=== PATIENT | female | born 1985 | race Two or more races ===

== ENCOUNTER 2016-11-04 15:24 | Emergency (ER) | payer MEDICAID ==
[~2016-11-04] VITALS: Ht 165.1 cm; Wt 69.0 kg
[~2016-11-04 15:24] MED LIST: ALBUTEROL; XOPENEX; depakote
[2016-11-04] MEDS ORDERED: BACITRACIN ZINC OINT UDPKT TOP ONE (17:15)
[2016-11-04] MEDS ORDERED: IBUPROFEN 400MG TABLET PO ONE (17:15)
[2016-11-04] MEDS ORDERED: TETANUS, DIPHTHERIA, PERTUSSIS VAC/PF 0.5ML (>7YR OLD) IM ONE (17:15)
[2016-11-04 17:35] VITALS: BP 121/60
== END 2016-11-04 18:11 | disposition home or self-care (01) ==
LOC: ER 15:25
DX: S60.511A Abrasion of right hand, initial encounter (principal); H91.90 Unspecified hearing loss, unspecified ear; F12.10 Cannabis abuse, uncomplicated; Z98.890 Other specified postprocedural states; W45.8XXA Other foreign body or object entering through skin, initial encounter; Y93.89 Activity, other specified; Y92.89 Other specified places as the place of occurrence of the external cause; Y99.8 Other external cause status
CPT/HCPCS: 73130; 90471; 90715; 99284; J7030; Z7610

== ENCOUNTER 2020-03-29 14:14 | Emergency (ER) | payer MEDICAID ==
[~2020-03-29] VITALS: Ht 162.6 cm; Wt 55.0 kg
[2020-03-29 20:36] LABS: CLARITY URINE CLEAR (CLEAR); COLOR URINE YELLOW (YELLOW); KETONES URINE TRACE (NEGATIVE); LEUKOCYTE ESTERASE URINE 1+ (NEGATIVE); NITRITE URINE NEGATIVE (NEGATIVE); OCCULT BLOOD URINE NEGATIVE (NEGATIVE); PROTEIN URINE NEGATIVE (NEGATIVE)
[2020-03-29 20:50] LABS: CHLORIDE 110 mEq/L (98-107)
[2020-03-29 20:51] LABS: BASOPHILS % 0.8 % (0.0-2.0); EOSINOPHILS % 1.2 % (0.0-5.0); HEMATOCRIT. 37.6 % (36.0-48.0); HEMOGLOBIN. 12.4 g/dL (12.0-16.0); MEAN CORPUSCULAR VOLUME 90.9 fL (81.0-99.0); MEAN PLATELET VOLUME 10.9 fl (7.4-10.4); MONOCYTES % 12.3 % (2.0-8.0); NEUTROPHILS % 58.7 % (40.0-76.0); PLATELET 160 x1000/uL (130-400); RED BLOOD CELL COUNT 4.14 mill/uL (4.2-5.4); RED CELL DISTRIBUTION WIDTH 13.8 % (11.6-14.6)
[2020-03-29 20:53] LABS: *BARBITURATES SCREEN URINE NEGATIVE (NEGATIVE); *BENZODIAZEPINES SCREEN URINE NEGATIVE (NEGATIVE); *COCAINE SCREEN URINE NEGATIVE (NEGATIVE); METHADONE URINE SCREEN NEGATIVE (NEGATIVE); OPIATES URINE SCREEN NEGATIVE (NEGATIVE)
[2020-03-29 20:54] LABS: PHENCYCLIDINE URINE SCREEN NEGATIVE (NEGATIVE)
[2020-03-29 20:54] LABS: ETHANOL BLOOD < 10 mg/dL
[2020-03-29 20:56] LABS: *AMPHETAMINES SCREEN URINE PRESUMTIVE POSITIVE (NEGATIVE); CANNABINOID URINE SCREEN PRESUMTIVE POSITIVE (NEGATIVE)
[2020-03-29 21:11] LABS: HCG SCREEN NEGATIVE
[2020-03-29] MEDS ORDERED: NITROFURANTOIN 100MG M/M CAPSULE PO STA (21:44)
[2020-03-30 12:00] VITALS: BP 114/70
== END 2020-03-30 12:52 | disposition home or self-care (01) ==
LOC: ER 14:27
DX: F91.9 Conduct disorder, unspecified (principal); H91.3 Deaf nonspeaking, not elsewhere classified; R62.50 Unspecified lack of expected normal physiological development in childhood; F20.9 Schizophrenia, unspecified; F31.9 Bipolar disorder, unspecified; F19.10 Other psychoactive substance abuse, uncomplicated; Z59.0 Homelessness
CPT/HCPCS: 36415; 80053; 80165; 80305; 80307; 80320; 80329; 81003; 84703; 85025; 99285; G0480

== ENCOUNTER 2020-05-11 01:21 | Emergency (ER) | payer MEDICAID ==
[~2020-05-11] VITALS: Ht 170.2 cm; Wt 68.0 kg
[2020-05-11 01:24] VITALS: BP 127/75
[2020-05-11] MEDS ORDERED: KETOROLAC 60MG/2ML VIAL IM ONE (06:45)
[2020-05-11] MEDS ORDERED: KETOROLAC 60MG/2ML VIAL IM NR (08:00)
== END 2020-05-11 09:20 | disposition home or self-care (01) ==
LOC: ER 01:21
DX: M54.9 Dorsalgia, unspecified (principal); M54.30 Sciatica, unspecified side; F31.9 Bipolar disorder, unspecified; H91.3 Deaf nonspeaking, not elsewhere classified
CPT/HCPCS: 73502; 81025; 93970; 99284; J1885

== ENCOUNTER 2020-06-25 14:23 | Emergency (ER) | payer MEDICAID ==
[~2020-06-25] VITALS: Ht 167.6 cm; Wt 68.0 kg
[2020-06-25] MEDS ORDERED: ONDANSETRON HCL 4MG/2ML INJ IV STA (14:36)
[2020-06-25] MEDS ORDERED: SODIUM CHLORIDE 0.9% 1,000 ML IV ONE (14:45)
[2020-06-25 16:02] LABS: BASOPHILS % 0.4 % (0.0-2.0); EOSINOPHILS % 0.6 % (0.0-5.0); HEMATOCRIT. 40.9 % (36.0-48.0); HEMOGLOBIN. 13.5 g/dL (12.0-16.0); LYMPHOCYTES % 23.4 % (20.0-50.0); MEAN CORPUSCULAR HEMOGLOBIN 30.3 pg (28.0-32.0); MEAN CORPUSCULAR VOLUME 91.9 fL (81.0-99.0); MEAN PLATELET VOLUME 11.1 fl (7.4-10.4); MONOCYTES % 7.3 % (2.0-8.0); NEUTROPHILS % 68.3 % (40.0-76.0); PLATELET 163 x1000/uL (130-400); RED BLOOD CELL COUNT 4.46 mill/uL (4.2-5.4); RED CELL DISTRIBUTION WIDTH 14.4 % (11.6-14.6)
[2020-06-25 16:11] LABS: CHLORIDE 106 mEq/L (98-107)
[2020-06-25 16:13] LABS: PROTHROMBIN TIME 10.1 sec (9.6-11.0)
[2020-06-25 16:17] LABS: HCG SCREEN NEGATIVE
[2020-06-25 19:25] VITALS: BP 110/68
== END 2020-06-25 19:56 | disposition home or self-care (01) ==
LOC: ER 14:23
DX: R10.9 Unspecified abdominal pain (principal); R19.7 Diarrhea, unspecified; J45.909 Unspecified asthma, uncomplicated; I10 Essential (primary) hypertension; E11.9 Type 2 diabetes mellitus without complications; Z98.890 Other specified postprocedural states
CPT/HCPCS: 36415; 74021; 80053; 83690; 84484; 84703; 85025; 85610; 93005; 96361; 96374; 99285; J2405; J7030; Z7610

== ENCOUNTER 2020-11-18 16:54 | Emergency (ER) | payer MEDICAID ==
[~2020-11-18] VITALS: Ht 170.2 cm; Wt 82.0 kg
[2020-11-18 19:25] LABS: CHLORIDE 108 mEq/L (98-107); EOSINOPHILS % 3.4 % (0.0-5.0); HEMATOCRIT. 35.5 % (36.0-48.0); LYMPHOCYTES % 38.6 % (20.0-50.0); MEAN CORPUSCULAR HEMOGLOBIN 29.4 pg (28.0-32.0); MEAN CORPUSCULAR VOLUME 86.5 fL (81.0-99.0); MEAN PLATELET VOLUME 10.5 fl (7.4-10.4); MONOCYTES % 8.2 % (2.0-8.0); NEUTROPHILS % 48.8 % (40.0-76.0); PLATELET 173 x1000/uL (130-400); RED CELL DISTRIBUTION WIDTH 14.7 % (11.6-14.6)
[2020-11-18 19:29] LABS: ETHANOL BLOOD < 10 mg/dL
[2020-11-18 22:45] LABS: CLARITY URINE CLEAR (CLEAR); COLOR URINE YELLOW (YELLOW); KETONES URINE TRACE (NEGATIVE); LEUKOCYTE ESTERASE URINE NEGATIVE (NEGATIVE); NITRITE URINE NEGATIVE (NEGATIVE); OCCULT BLOOD URINE TRACE (NEGATIVE); PROTEIN URINE NEGATIVE (NEGATIVE); SPECIFIC GRAVITY URINE 1.029 (1.005-1.030); UROBILINOGEN URINE 0.2 E.U./dL (0.2-1.0)
[2020-11-18 22:54] LABS: *BARBITURATES SCREEN URINE NEGATIVE (NEGATIVE); *BENZODIAZEPINES SCREEN URINE NEGATIVE (NEGATIVE); *COCAINE SCREEN URINE NEGATIVE (NEGATIVE)
[2020-11-18 22:55] LABS: METHADONE URINE SCREEN NEGATIVE (NEGATIVE); OPIATES URINE SCREEN NEGATIVE (NEGATIVE); PHENCYCLIDINE URINE SCREEN NEGATIVE (NEGATIVE)
[2020-11-18 23:01] LABS: *AMPHETAMINES SCREEN URINE PRESUMTIVE POSITIVE (NEGATIVE)
[2020-11-18 23:02] LABS: CANNABINOID URINE SCREEN PRESUMTIVE POSITIVE (NEGATIVE)
[2020-11-18 23:03] LABS: HCG SCREEN NEGATIVE
[2020-11-19] MEDS ORDERED: RISPERIDONE 0.5MG TABLET PO STA (12:44)
[2020-11-20 11:42] VITALS: BP 138/97
== END 2020-11-20 11:51 | disposition home or self-care (01) ==
LOC: ER 16:54
DX: F23 Brief psychotic disorder (principal); F15.10 Other stimulant abuse, uncomplicated; F31.9 Bipolar disorder, unspecified; E11.9 Type 2 diabetes mellitus without complications; I10 Essential (primary) hypertension; J45.909 Unspecified asthma, uncomplicated; H91.3 Deaf nonspeaking, not elsewhere classified; Z59.0 Homelessness; Z98.890 Other specified postprocedural states; Z75.1 Person awaiting admission to adequate facility elsewhere
CPT/HCPCS: 36415; 80053; 80305; 80307; 80320; 80329; 81003; 84703; 85025; 93005; 99285; G0480

== ENCOUNTER 2021-12-10 08:14 | Emergency (ER) | payer MEDICAID, MEDICARE ==
[~2021-12-10] VITALS: Ht 162.6 cm; Wt 117.0 kg
[2021-12-10 13:07] VITALS: BP 133/90
== END 2021-12-10 13:07 | disposition home or self-care (01) ==
LOC: ER 08:14
DX: M79.89 Other specified soft tissue disorders (principal); S09.8XXA Other specified injuries of head, initial encounter; J45.909 Unspecified asthma, uncomplicated; I10 Essential (primary) hypertension; E11.9 Type 2 diabetes mellitus without complications; H91.3 Deaf nonspeaking, not elsewhere classified; W01.0XXA Fall on same level from slipping, tripping and stumbling without subsequent striking against object, initial encounter; Y92.9 Unspecified place or not applicable; Z86.718 Personal history of other venous thrombosis and embolism
CPT/HCPCS: 73090; 81025; 93971; 99284

== ENCOUNTER 2022-06-30 21:02 | Emergency (ER) | payer MEDICAID ==
[~2022-06-30] VITALS: Ht 165.1 cm; Wt 82.0 kg
[~2022-06-30 21:02] MED LIST changes: +ACET-3163 MT; +ATOR40TA70 MT
[2022-06-30 21:32] VITALS: BP 130/76
[2022-07-01 09:16] LABS: CLARITY URINE CLOUDY (CLEAR); COLOR URINE YELLOW (YELLOW); KETONES URINE TRACE (NEGATIVE); LEUKOCYTE ESTERASE URINE 1+ (NEGATIVE); NITRITE URINE NEGATIVE (NEGATIVE); OCCULT BLOOD URINE NEGATIVE (NEGATIVE); PROTEIN URINE TRACE (NEGATIVE); SPECIFIC GRAVITY URINE 1.027 (1.005-1.030)
[2022-07-01 09:20] LABS: BASOPHILS % 0.4 % (0.0-2.0); EOSINOPHILS % 3.1 % (0.0-5.0); HEMATOCRIT. 42.5 % (36.0-48.0); HEMOGLOBIN. 13.5 g/dL (12.0-16.0); LYMPHOCYTES % 30.1 % (20.0-50.0); MEAN CORPUSCULAR HEMOGLOBIN 29.4 pg (28.0-32.0); MEAN CORPUSCULAR VOLUME 92.8 fL (81.0-99.0); MEAN PLATELET VOLUME 11.4 fl (7.4-10.4); MONOCYTES % 10.4 % (2.0-8.0); PLATELET 197 x1000/uL (130-400); RED BLOOD CELL COUNT 4.58 mill/uL (4.2-5.4); RED CELL DISTRIBUTION WIDTH 15.6 % (11.6-14.6)
[2022-07-01 09:23] LABS: CHLORIDE 108 mEq/L (98-107)
[2022-07-01 09:30] LABS: ETHANOL BLOOD < 10 mg/dL
[2022-07-01 10:38] LABS: *BARBITURATES SCREEN URINE NEGATIVE (NEGATIVE); *BENZODIAZEPINES SCREEN URINE NEGATIVE (NEGATIVE); METHADONE URINE SCREEN NEGATIVE (NEGATIVE); OPIATES URINE SCREEN NEGATIVE (NEGATIVE)
[2022-07-01 11:07] LABS: *AMPHETAMINES SCREEN URINE PRESUMTIVE POSITIVE (NEGATIVE); *COCAINE SCREEN URINE PRESUMTIVE POSITIVE (NEGATIVE)
[2022-07-01 11:08] LABS: CANNABINOID URINE SCREEN PRESUMTIVE POSITIVE (NEGATIVE); PHENCYCLIDINE URINE SCREEN PRESUMTIVE POSITIVE (NEGATIVE)
[2022-07-01] MEDS ORDERED: RISPERIDONE 1MG TABLET PO SCH (21:00)
== END 2022-07-01 23:30 | disposition home or self-care (01) ==
LOC: ER 21:02
DX: F19.10 Other psychoactive substance abuse, uncomplicated (principal); F15.10 Other stimulant abuse, uncomplicated; I10 Essential (primary) hypertension; E11.9 Type 2 diabetes mellitus without complications; J45.909 Unspecified asthma, uncomplicated; Z98.890 Other specified postprocedural states; Z86.59 Personal history of other mental and behavioral disorders
CPT/HCPCS: 36415; 71045; 80053; 80305; 80320; 81001; 85025; 99284; G0480

== ENCOUNTER 2022-08-17 12:39 | Emergency (ER) | payer MEDICAID ==
[~2022-08-17] VITALS: Ht 172.7 cm; Wt 100.0 kg
[2022-08-17] MEDS ORDERED: HALOPERIDOL LACTATE 5MG/ML VIAL IM STA (12:52)
[2022-08-17] MEDS ORDERED: LORAZEPAM 2MG/ML CPJ IM STA (12:52)
[2022-08-17] MEDS ORDERED: DIPHENHYDRAMINE 50MG/ML VIAL IM ONE (13:00)
[2022-08-17] MEDS ORDERED: SODIUM CHLORIDE 0.9% 1,000 ML IV ONE (13:00)
[2022-08-17] MEDS ORDERED: LORAZEPAM 2MG/ML CPJ IM SCH (15:15)
[2022-08-17] MEDS ORDERED: DIPHENHYDRAMINE 50MG/ML VIAL IM SCH (15:15)
[2022-08-17] MEDS ORDERED: HALOPERIDOL LACTATE 5MG/ML VIAL IM SCH (15:15)
[2022-08-17 15:45] LABS: BASOPHILS % 0.4 % (0.0-2.0); EOSINOPHILS % 0.8 % (0.0-5.0); HEMATOCRIT. 42.8 % (36.0-48.0); HEMOGLOBIN. 14.1 g/dL (12.0-16.0); LYMPHOCYTES % 17.2 % (20.0-50.0); MEAN CORPUSCULAR HEMOGLOBIN 29.1 pg (28.0-32.0); MEAN CORPUSCULAR VOLUME 88.7 fL (81.0-99.0); MEAN PLATELET VOLUME 11.5 fl (7.4-10.4); MONOCYTES % 6.4 % (2.0-8.0); NEUTROPHILS % 75.2 % (40.0-76.0); PLATELET 200 x1000/uL (130-400); RED BLOOD CELL COUNT 4.82 mill/uL (4.2-5.4); RED CELL DISTRIBUTION WIDTH 15.3 % (11.6-14.6)
[2022-08-17 15:53] LABS: CHLORIDE 109 mEq/L (98-107)
[2022-08-17 16:00] LABS: ETHANOL BLOOD < 10 mg/dL
[2022-08-17 16:16] LABS: HCG SCREEN NEGATIVE
[2022-08-17] MEDS ORDERED: HALOPERIDOL LACTATE 5MG/ML VIAL IM NR (17:00)
[2022-08-17] MEDS ORDERED: DIPHENHYDRAMINE 50MG/ML VIAL IM NR (17:00)
[2022-08-17] MEDS ORDERED: LORAZEPAM 2MG/ML CPJ IM NR (17:00)
[2022-08-17 23:21] LABS: CLARITY URINE CLEAR (CLEAR); COLOR URINE YELLOW (YELLOW); KETONES URINE 1+ (NEGATIVE); LEUKOCYTE ESTERASE URINE 3+ (NEGATIVE); NITRITE URINE NEGATIVE (NEGATIVE); OCCULT BLOOD URINE NEGATIVE (NEGATIVE); PH URINE 6.5 (4.5-8.0); PROTEIN URINE NEGATIVE (NEGATIVE)
[2022-08-17 23:30] LABS: *BARBITURATES SCREEN URINE NEGATIVE (NEGATIVE); *BENZODIAZEPINES SCREEN URINE NEGATIVE (NEGATIVE); METHADONE URINE SCREEN NEGATIVE (NEGATIVE); OPIATES URINE SCREEN NEGATIVE (NEGATIVE)
[2022-08-17 23:40] LABS: *AMPHETAMINES SCREEN URINE PRESUMTIVE POSITIVE (NEGATIVE); *COCAINE SCREEN URINE PRESUMTIVE POSITIVE (NEGATIVE); CANNABINOID URINE SCREEN PRESUMTIVE POSITIVE (NEGATIVE); PHENCYCLIDINE URINE SCREEN PRESUMTIVE POSITIVE (NEGATIVE)
[2022-08-18] MEDS ORDERED: CEPHALEXIN 250MG CAPSULE PO SCH (09:00)
[2022-08-18 10:34] VITALS: BP 128/75
== END 2022-08-18 11:53 | disposition home or self-care (01) ==
LOC: ER 12:39
DX: T43.651A Poisoning by methamphetamines accidental (unintentional), initial encounter (principal); F23 Brief psychotic disorder; R45.1 Restlessness and agitation; F31.9 Bipolar disorder, unspecified; E11.9 Type 2 diabetes mellitus without complications; I10 Essential (primary) hypertension; H91.90 Unspecified hearing loss, unspecified ear; F41.9 Anxiety disorder, unspecified; J45.909 Unspecified asthma, uncomplicated; Z20.822 Contact with and (suspected) exposure to COVID-19; Z78.1 Physical restraint status; Z98.890 Other specified postprocedural states; Y92.018 Other place in single-family (private) house as the place of occurrence of the external cause
CPT/HCPCS: 36415; 80053; 80305; 80320; 81003; 81025; 84703; 85025; 87086; 87426; 94640; 96372; 99285; C9803; J1200; J1630; J2060; J7030; G0480